=== PATIENT | male | born 1950 | race Caucasian/White ===

== ENCOUNTER 2017-11-11 12:44 | Day surgery (SDC) | payer MEDICARE, OTHER ==
[~2017-11-11] VITALS: Ht 177.8 cm; Wt 107.0 kg
[~2017-11-11 12:44] MED LIST: ASPIR-LOW81 MG PO; LEVOTHYROXINE150 MCG PO; METOPROLOL SUCC50 MG PO; TESTOSTERO200 MG/1 M IM; ZYRTEC10 MG PO
[2017-11-11] MEDS ORDERED: VITAMIN D2000 UNI1 PO (13:12)
[2017-11-11] MEDS ORDERED: VISION PLUS LU1 EACH PO (13:12)
--- NOTE | 2017-11-11 16:34 | NUR ---
11/11/17 1634 Mariangel Mchugh 1626 RESP EVEN AND UNLABORED. PT TALKING. IV CDI AND INFUSING LR.
--- NOTE | 2017-11-12 15:58 | OR ---
[facility] [address], [place] [address] Signed DATE OF OPERATION: 11/11/2017 SURGEON: Luis Carlos Casillas MD PREOPERATIVE DIAGNOSES: 1. Gastroesophageal reflux, episodic dysphagia. 2. Family history of colon cancer and personal history of polyps. POSTOPERATIVE DIAGNOSES: 1. Hiatal hernia without obvious stricture, mild distal esophagitis. 2. Diverticular changes of sigmoid. No evidence of polyps. PROCEDURE: 1. Esophagogastroduodenoscopy with biopsy. 2. Total colonoscopy to cecum. ANESTHESIA: Intravenous sedation 200 mcg of fentanyl, Versed 8 mg. INDICATION: A 67-year-old white man who is a patient of Dr. Jarad Taylor and known to me from the past. He has family history of colon cancer in his mother and has had polyps himself. He is symptom-free at this time. He is admitted to undergo surveillance colonoscopy on that basis. Additionally, the patient has reflux type symptoms, though he takes no medications for reflux currently. He does have mild dysphagia from time to time. He is admitted to undergo upper endoscopy concurrently. The risks of bleeding, infection, and perforation were reviewed with him. He understands and wished to proceed. FINDINGS: Upper endoscopy showed a poor flap valve and mild distal esophagitis, but no sign of stricture, neoplasm or Escalante's epithelium. Stomach and duodenum were reasonably normal. ASHLEY test was negative 30 minutes post procedure. On colonoscopy, the prep was quite good. Complete colonoscopy was undertaken of the cecum. There was no sign of polyps, only multiple diverticula of the sigmoid and left colon. DESCRIPTION OF PROCEDURE: Electronically Signed By: LUIS CARLOS CASILLAS MD 11/12/17 1558 PATIENT NAME: ADAM WYMAN OPERATIVE REPORT DATE OF : 48 PHYSICIAN: LUIS CARLOS CASILLAS MD REPORT #: [id number] REPORT IS CONFIDENTIAL AND NOT TO BE RELEASED WITHOUT AUTHORIZATION [facility] [address], [place] [address] Signed The patient was brought to the endoscopy suite and given topical Hurricaine spray hypopharyngeal anesthesia and placed in lateral decubitus position. He was given intravenous sedation to the point of slurred speech and nystagmus. A bite block was placed. An Olympus video upper endoscope was passed in the hypopharynx. The vocal cords were visualized and found to be normal. Scope was advanced to the esophagus. Throughout its length, it was normal except for the distal portion where there was mild inflammatory change. There was no sign of Escalante's epithelium, stricture, or neoplasm. The scope was advanced to the stomach, which was insufflated with air. Rugal folds were normal. The antrum was normal. The pylorus was normal. Scope was passed through and into the duodenum, which was normal. Biopsies were taken there to assess for celiac disease. The scope was withdrawn. A biopsy was then taken from stomach for both ASHLEY and pathologic testing and retroflex view undertaken showing an effaced flap valve consistent with hiatal hernia. Scope was straightened, withdrawn, and biopsies taken of the distal esophagus. Further withdrawal of scope allowed for biopsy of the mid esophagus. The scope was removed further and there was no sign of abnormality. Plans were then made for colonoscopy. The table was rotated and additional sedation given. Digital rectal examination was found to be normal. An Olympus video colonoscope was passed in the rectum and manipulated throughout the colon. Numerous diverticula were seen in the sigmoid and left colon. The scope was ultimately advanced to the cecum. The ileocecal valve was normal. A biopsy forceps was used to grasp the tissue behind the ileocecal valve, elevating it and allowing it to be inspected as normal. The scope was withdrawn from that point and careful examination throughout showed no sign of abnormality until the left colon where diverticula were once again seen as was noted also in the sigmoid. Retroflexed view of the rectum was normal. The scope was removed. The patient was taken to the recovery room in good condition. CONCLUDING DIAGNOSES: 1. Clinical reflux symptoms with poor flap valve, mild distal esophagitis. 2. Normal colon except for diverticular changes. PLAN: Recommend high-fiber diet regarding the colon and Prilosec 20 mg p.o. daily for reflux. He will return to see us in approximately 6 weeks to assess his reflux symptom response to therapy. Luis Carlos Casillas MD Electronically Signed By: LUIS CARLOS CASILLAS MD 11/12/17 1558 PATIENT NAME: ADAM WYMAN OPERATIVE REPORT DATE OF : 48 PHYSICIAN: LUIS CARLOS CASILLAS MD REPORT #: [id number] REPORT IS CONFIDENTIAL AND NOT TO BE RELEASED WITHOUT AUTHORIZATION [facility] [address] [place] [id number] Signed SUKHJINDER/JERRICA /[id number] cc: Guicho Taylor MD Electronically Signed By: LUIS CARLOS CASILLAS MD 11/12/17 1558 PATIENT NAME: ADAM WYMAN OPERATIVE REPORT DATE OF : 48 PHYSICIAN: LUIS CARLOS CASILALS MD REPORT #: [id number] REPORT IS CONFIDENTIAL AND NOT TO BE RELEASED WITHOUT AUTHORIZATION
== END 2017-11-11 17:12 | disposition home or self-care (01) ==
LOC: DS 12:44 → OPS 12:44 → DS 13:00 → OPS 13:00
PROVIDERS: Surgery
PROC: 0DB68ZX Excision of Stomach, Via Natural or Artificial Opening Endoscopic, Diagnostic (ICD-10-PCS; 2017-11-11)
PROC: 0DB28ZX Excision of Middle Esophagus, Via Natural or Artificial Opening Endoscopic, Diagnostic (ICD-10-PCS; 2017-11-11)
PROC: 0DB38ZX Excision of Lower Esophagus, Via Natural or Artificial Opening Endoscopic, Diagnostic (ICD-10-PCS; 2017-11-11)
PROC: 0DJD8ZZ Inspection of Lower Intestinal Tract, Via Natural or Artificial Opening Endoscopic (ICD-10-PCS; principal; 2017-11-11 13:00)
PROC: 0DB98ZX Excision of Duodenum, Via Natural or Artificial Opening Endoscopic, Diagnostic (ICD-10-PCS; 2017-11-11 13:00)
DX: Z12.11 Encounter for screening for malignant neoplasm of colon (principal); K57.30 Diverticulosis of large intestine without perforation or abscess without bleeding; K29.80 Duodenitis without bleeding; K31.9 Disease of stomach and duodenum, unspecified; K21.0 Gastro-esophageal reflux disease with esophagitis; K44.9 Diaphragmatic hernia without obstruction or gangrene; K21.9 Gastro-esophageal reflux disease without esophagitis; E03.9 Hypothyroidism, unspecified; Z86.010 Personal history of colon polyps; Z80.0 Family history of malignant neoplasm of digestive organs; Z83.71 Family history of colonic polyps; Z88.8 Allergy status to other drugs, medicaments and biological substances; Z90.89 Acquired absence of other organs; Z90.49 Acquired absence of other specified parts of digestive tract; Z96.643 Presence of artificial hip joint, bilateral; Z79.899 Other long term (current) drug therapy; Z98.890 Other specified postprocedural states
CPT/HCPCS: 88305; 99153; G0500; J0694; J2250; J3010; J7120